=== PATIENT | female | born 1995 | race Caucasian/White ===

== ENCOUNTER 2018-08-21 19:09 | Inpatient (IN) | payer SELFPAY ==
[2018-08-21 19:45] VITALS: BMI 25.4
--- NOTE | 2018-08-21 20:09 | PDOC.FPROB ---
FMR OB H&P: HPI - History of Present Illness Chief Complaint: contractions History of Present Illness: 23 yo at 38.3 wk. Presents with contractions that started this morning at approximately 0700. Occurring every 5-7 min up until 2 hours ago and have since spaced out to every 10-15 min. Denies MORENO, scotoma, LOF, bleeding, abdominal pain , or discharge. Primary Care Physician: Odilon FMR OB H&P: Current - Care : 2 Para: 1001 Gestational age: 38.3 wk Due date: 09/02/18 Dating Criteria: LMP/12.6wk US Total weight gain: 25 lbs Course/Complications: none - OB Labs Blood type: B RH: positive Antibody Screen: negative HIV: negative RPR: negative HepBsAg: negative Rubella: immune Quad screen: unknown (patient denies screen.) Urine drug screen: not done Gonorrhea: negative Chlamydia: negative Pap Smear: NILM 1 hour gtt: 124 GBS: negative (collected on 08/08/18) H&H: 13.4/39.9 Platelets: 254 - First Trimester Ultrasound First trimester: no abnormalities noted. - Anatomy Survey Anatomy survey: No abnormalities noted. FMR OB H&P: History - Past Medical History PMH: none - OB History OB History: 1 prior delivered at 37 wks with no complications - WEED THINNER History WEED THINNER History: unremarkable. - Surgical History Sx History: none - Social History Social History: no A/T/D - Family History Family History: unremarkable. FMR OB H&P: Medications - Current Home Medications: Medication Instructions Recorded Confirmed Type Vit No.126/Iron/Folic 1 capsule PO DAILY 01/08/16 08/21/18 History [Classic ] Polyethylene Glycol 3350 [Miralax] 1 packet PO DAILY 08/21/18 08/21/18 History Acetaminophen [Tylenol Regular 650 mg PO Q4H PRN tab 08/23/18 Rx Strength] Ibuprofen [Motrin] 800 mg PO Q8HR tab 08/23/18 Rx Vitamin 1 tab PO DAILY tab 08/23/18 Rx Allergies/Adverse Reactions: Allergies Allergy/AdvReac Type Severity Reaction Status Date / Time No Known Allergies Allergy Verified 08/21/18 19:42 FMR OB H&P: ROS - Review of Systems General: denies: fever/chills, weight/appetite/sleep changes Eyes: denies: eye pain, vision changes ENT: denies: nasal congestion, rhinorrhea Cardiovascular: denies: chest pain, palpitation Respiratory: denies: cough, congestion, shortness of breath Gastrointestinal: reports: cramping. denies: abdominal pain, indigestion, nausea, vomiting, constipation Genitourinary (Female): reports: contractions. denies: incontinence, dysuria Musculoskeletal: denies: pain, stiffness, tenderness Neurologic: denies: numbness, syncope Integumentary: denies: itching, rash Breast: denies: lumps, bumps Endocrine: denies: cold intolerance, heat intolerance Hematologic/Lymphatic: denies: prolonged or excessive bleeding Psychological: denies: depression, anxiety FMR OB H&P: Vital Signs - Maternal Vital signs: BP 117/78 P 111 R 16 T 98.5F - Heart Tones Baseline: 140 Variability: moderate Acceleration: present Deceleration: absent Category: category 1 Cowan contractions every: 10 min FMR OB H&P: Physical Exam - Physical Exam General: NAD, awake, alert and oriented HEENT: normocephalic and atraumatic, no scleral icterus Neck: supple, FROM Heart: RRR, normal S1/S2, no murmurs/rubs/gallops General: CTAB, no respiratory distress Abdomen: soft, gravid, non-tender, no masses Musculoskeletal: normal gait and station, no misalignment/asymmetry Neurological: sensation to pain,touch and proprioception grossly normal, no focal deficit Skin: no rash, good tugor Lymphatic: no unusual bruising or bleeding, no purpura Psychiatric: intact recent and remote memory, good judgement and insight, normal mood and affect - Pelvic Exam Vulva: normal hair distribution, appropriate ronn stage, no blood SVE: 4/75/+1 Membranes: intact Presentation: vertex Estimated Weight: 7 lbs FMR OB H&P: A/P - Problem List (1) First stage of labor Status: Acute Code(s): OXF6883 - Assessment and Plan: Cervical change since last office visit. Will monitor for 2 hours and reassess. if cervical change made, will admit with expectant management. If no cervical change, plan to d/c home with RTC precautions. (2) Term Status: Acute Code(s): Z34.80 - ENCOUNTER FOR SUPRVSN OF NORMAL , UNSP TRIMESTER Discussion: Date/Time: 08/21/182006 This H&P was discussed with Dr. Alvarado who agree with the above documentation and plan. Addendum - Attending - Attending Attestation Date/Time: 08/24/18 0837 I personally evaluated the patient and discussed the management with Dr. Lee I agree with the History, Examination, Assessment and Plan documented above with any addition or exceptions noted below.
[2018-08-21] MEDS ORDERED: Acetaminophen 500 MG TAB PO PRN (22:22)
[2018-08-21] MEDS ORDERED: Ondansetron PF 4 MG/2 ML Vial IVP PRN (22:22)
[2018-08-21] MEDS ORDERED: NS / Oxytocin 40 units/1000ml 1,000 ML IV PRN (22:22)
[2018-08-21] MEDS ORDERED: Ibuprofen 800 MG TAB PO PRN (22:22)
[2018-08-21] MEDS ORDERED: Methylergonovine 0.2 MG/ML VIAL IM PRN (22:22)
[2018-08-21] MEDS ORDERED: Misoprostol 200 MCG TAB PR PRN (22:22)
[2018-08-21] MEDS ORDERED: Docusate 100 MG CAP PO PRN (22:22)
[2018-08-21] MEDS ORDERED: Promethazine HCl 25 MG/ML VIAL IM PRN (22:22)
[2018-08-21] MEDS ORDERED: HYDROcodone/Acetaminophen 5/325 mg Tablet PO PRN ×2 (22:22)
[2018-08-21] MEDS ORDERED: Diphenoxylate HCl/Atropine Tablet PO PRN (22:22)
[2018-08-21] MEDS ORDERED: Lidocaine 1% (PF) 30 ML VIAL SC PRN (22:22)
[2018-08-21] MEDS ORDERED: Carboprost 250 MCG/ML AMP IM PRN (22:22)
--- NOTE | 2018-08-21 22:22 | PDOC.EVN ---
Event Note - Event Note Event Note: Patient is now with a bulging amniotic sac. Will admit with expectant management.
[2018-08-21] MEDS ORDERED: Lactated Ringer's 1,000 ML IV SCH ×2 (22:30)
[2018-08-21] MEDS ORDERED: Fentanyl 4 mcg/Bup 0.1% Cadd 100 ML ONE (22:52)
[2018-08-21 22:55] LABS: Mean Corpuscular HGB CONC 34.4 g/dL (32.0-36.0); Mean Corpuscular Hemoglobin 29.8 pg (27.0-31.0); Mean Corpuscular Volume 86.9 fL (78.0-98.0); Mean Platelet Volume 8.2 fL (7.4-10.4); Platelet Count 243 thou/uL (130-400); RBC Distribution Width 11.8 % (11.5-14.5); Red Blood Cell (RBC) Count 4.03 mill/uL (4.20-5.40)
[2018-08-21] MEDS ORDERED: Lidocaine 1.5% w/Epi 1:200K 30 ML VIAL (Epid Use) ONE (23:22)
[2018-08-21 23:35] LABS: Syphilis Antibody Nonreactive (Nonreactive); Syphilis Antibody Index 0.04 S/CO (<1.00 Non-Reactive)
[2018-08-22] MEDS ORDERED: Eucerin (Mineral Oil/Petrolatum,White) 30 gm Jar TOP PRN
[2018-08-22] MEDS ORDERED: Ondansetron PF 4 MG/2 ML Vial IVP PRN
[2018-08-22] MEDS ORDERED: Naloxone HCl 0.4 mg/ml Vial IVP PRN ×2
[2018-08-22] MEDS ORDERED: Promethazine HCl 25 MG/ML VIAL IM PRN
[2018-08-22] MEDS ORDERED: Fentanyl 4 mcg/Bupivacaine 0.1% Cassette 100 ML EPIDURAL SCH
[2018-08-22] MEDS ORDERED: ePHEDrine/0.9% NaCl/PF SYRINGE 50 mg/10 ml SLOW IVP PRN
[2018-08-22] MEDS ORDERED: diphenhydrAMINE 50 MG/ML VIAL IVP PRN
[2018-08-22] MEDS ORDERED: Acetaminophen 325 MG TAB PO PRN
[2018-08-22] MEDS ORDERED: Communication Order-Pharmacy FS SCH
[2018-08-22] MEDS ORDERED: Lactated Ringer's 500 ML IV PRN
[2018-08-22 00:36] LABS: HBSAg Index 0.17 S/CO (0-0.99); Hep B Surf Ag Non-Reactive S/CO (NonReactive)
--- NOTE | 2018-08-22 02:27 | PDOC.OPDEL ---
OB Operative/Delivery Note Delivery Dr/Surgeon: Matheus Lee MD, Mimi Alvarado MD Pre-Delivery Diagnosis: active labor Procedure/Post Delivery Dx: spontaneous vaginal delivery Weeks gestation: 38 (38.4) Anesthesia: epidural - Findings A Sex: female - 1 min: 8 - 5 min: 9 - Additional Findings/Plan Placenta delivered: spontaneous Repaired Obstetrical Laceration: vaginal (vaginal side wall) Estimated blood loss: QBL 54 mL Compilations/Other Findings: Delivering Physician: Matheus Lee MD Attending: Alen Alvarado MD Procedure: Spontaneous Vaginal Delivery Anesthesia: epidural QBL: 54 ml Pre-op Diagnosis: 1. Term intrauterine in labor Post-op Diagnosis: 1. Term intrauterine , delivered Indications: A 23y/o female presents in active labor. Delivery Note: This is 23yo F @ 38.4wks who delivered a viable female infant at 0208. Following an uneventful antepartum course, a vigorous female was delivered over an intact perineum in the occipitoposterior position. Anterior Shoulder and then remainder of the body delivered. Nuchal cord x1 which was easily reduced. The was immediately placed on the mother's chest and stimulated. Cord clamped after delayed cord clamping and cut and cord blood collected. Placenta delivered intact at 0213 with a 3 vessel cord noted. Fundal massage was performed and the fundus was firm. The cervix and vagina were inspected and found to have small left hemostatic vaginal sidewall lacerations. went to nursery in good condition for routine care. Apgars were 8,9 at 1 & 5 minutes, respectively. Patient tolerated delivery well and went to after routine recovery/care. Dr. Alvarado was present for the entire delivery. Post delivery plan: routine recovery Addendum - Attending - Attending Attestation Date/Time: 08/24/18 0781 I was present for the entire second and third stages of labor to supervise and give direction. I agree with the documentation above.
[2018-08-22] MEDS ORDERED: Lanolin Ointment 7 GM TUBE TOP PRN (04:02)
[2018-08-22] MEDS ORDERED: diphenhydrAMINE 25 MG CAP PO PRN (04:02)
[2018-08-22] MEDS ORDERED: NS / Oxytocin 40 units/1000ml 1,000 ML IV SCH (04:02)
[2018-08-22] MEDS ORDERED: Bisacodyl 10 MG SUPP PR PRN (04:02)
[2018-08-22] MEDS ORDERED: HYDROcodone/Acetaminophen 5/325 mg Tablet PO PRN (04:02)
[2018-08-22] MEDS ORDERED: Preparation H Ointment 28 GM TUBE PR PRN (04:02)
[2018-08-22] MEDS ORDERED: Benzocaine/Menthol 20-0.5% 60 ML CAN TOP PRN (04:02)
[2018-08-22] MEDS ORDERED: Milk Of Magnesia 30 ML UDCUP PO PRN (04:02)
[2018-08-22] MEDS: Ibuprofen 800 MG TAB PO SCH ×3 (06:04→22:28)
[2018-08-22] MEDS ORDERED: Adacel (T-DAP) 0.5 ML SYRINGE IM ONE (09:00)
[2018-08-22] MEDS: Docusate Calcium (SURFAK) 240 MG CAP PO SCH ×2 (09:09→22:28)
[2018-08-22] MEDS: Prenatal Vitamin 1 TAB PO SCH (09:09)
[2018-08-22] MEDS ORDERED: Bupivacaine/Epinephrine 0.25% 30 ML VIAL ONE (11:11)
[2018-08-23] MEDS: Ibuprofen 800 MG TAB PO SCH (06:50)
--- NOTE | 2018-08-23 06:50 | PDOC.PP ---
Post Progress Note Post Day #: 1.5 Subjective: no complaints desires dc home PO intake tolerated: yes Flatus: yes Ambulation: yes Vital Signs (12 hours) Temp Pulse Resp BP Pulse Ox 08/22/18 20:00 98.1 F 83 18 101/62 100 Weight Weight 135 lb - Physical Examination General: NAD Cardiovascular: no m/r/g, RRR Abdominal: + bowel sounds, lochia, no distention Extremities: negative homans (B) Neurological: no gross focal deficits Psychiatric: normal affect Result Diagrams: 08/21/18 22:45 Additional Labs: Post Labs Blood Type B POSITIVE 08/21/18 22:45 Hep Bs Antigen Non-Reactive S/CO (NonReactive) 08/21/18 22:45 - Assessment/Plan ding well dc home fu bvwc 6 wk
[2018-08-23 08:21] VITALS: BP 96/57; TEMP 97.8
[2018-08-23] MEDS: Docusate Calcium (SURFAK) 240 MG CAP PO SCH (08:34)
[2018-08-23] MEDS: Prenatal Vitamin 1 TAB PO SCH (08:35)
== END 2018-08-23 11:35 | disposition home or self-care (01) | DRG 807 ==
LOC: L&D/OP 19:09 → L&D 22:26 → 3SW 08-22 04:34
PROVIDERS: ADMIT Obstetrics & Gynecology; ATTEND Obstetrics & Gynecology
PROC: 10E0XZZ Delivery of Products of Conception, External Approach (ICD-10-PCS; principal; 2018-08-22)
PROC: 10907ZC Drainage of Amniotic Fluid, Therapeutic from Products of Conception, Via Natural or Artificial Opening (ICD-10-PCS; 2018-08-22)
DX: O69.81X0 Labor and delivery complicated by cord around neck, without compression, not applicable or unspecified (principal); Z37.0 Single live birth; Z3A.38 38 weeks gestation of pregnancy
CPT/HCPCS: 51702; 85027; 86780; 86850; 86900; 86901; 87340; 99285